=== PATIENT | female | born 1955 | race Caucasian/White ===

== ENCOUNTER 2016-11-14 12:56 | Inpatient (IN) | payer BC, OTHER ==
[2016-11-02 14:26] LABS: BASOPHILS 0.5 %; BASOPHILS ABSOLUTE 0.03 10/3/uL (0.0-0.16); EOSINOPHILS 0.8 %; EOSINOPHILS ABSOLUTE 0.05 10/3/uL (0.0-0.53); HEMATOCRIT 39.3 % (36.0-48.0); HEMOGLOBIN 13.1 g/dL (12.0-16.0); IMMATURE GRANULOCYTES 0.2 %; IMMATURE GRANULOCYTES ABSOLUTE 0.01 10/3/uL (0.0-0.11); LYMPHOCYTES ABSOLUTE 1.75 10/3/uL (0.67-4.30); MANUAL DIFF NO %; MEAN CORPUS HGB CONC 33.3 g/dL (32.0-36.0); MEAN CORPUSCULAR HEMOGLOB 28.2 pg (26.0-34.0); MEAN CORPUSCULAR VOLUME 84.7 fL (80-100); MEAN PLATELET VOLUME 10.1 fL (9.2-13.0); MONOCYTES 7.9 %; MONOCYTES ABSOLUTE 0.51 10/3/uL (0.21-1.20); NEUTROPHILS 63.6 %; NEUTROPHILS ABSOLUTE 4.14 10/3/uL (2.02-8.40); PLATELET COUNT 279 10/3/uL (150-400); RBC DISTRIBUTION WIDTH 12.7 % (12.0-16.0); RED CELL COUNT 4.64 10/6/uL (4.0-5.6); WHITE BLOOD CELLS 6.5 10/3/uL (4.5-10.5)
[2016-11-02 14:32] LABS: PARTIAL THROMBO TIME 29.2 SEC (22.5-37.2); PROTIME (NOT ORD) 12.8 SEC (12.0-14.5)
[2016-11-02 14:45] LABS: ALBUMIN 3.8 G/DL (3.5-5.0); ALKALINE PHOSPHATASE 115 U/L (45-117); BUN (BLOOD UREA NITROGEN) 12 MG/DL (6-23); CHLORIDE, SERUM 99 MMOL/L (96-112); CO2 (CARBON DIOXIDE) 28 MMOL/L (24-34); CREATININE 0.74 MG/DL (0.55-1.02); GFR AFRICAN AMERICAN 101 ML/MIN (>=60); GFR NON AFRICAN AMERICAN 87 ML/MIN (>=60); GLOBULIN 3.7 G/DL (2.5-4.1); GLUCOSE, SERUM 197 MG/DL (60-99); POTASSIUM, SERUM 4.1 MMOL/L (3.5-5.3); SGOT(AST) 17 U/L (5-40); SGPT(ALT) 27 U/L (5-65); SODIUM, SERUM 139 MMOL/L (135-148); TOTAL BILIRUBIN 0.6 MG/DL (0-1.2); TOTAL PROTEIN 7.5 G/DL (6.0-8.5)
[2016-11-02 15:52] LABS: ASCORBIC ACID (UR NOT ORDER) NEG (NEG); BILIRUBIN, URINE NEGATIVE (NEG); KETONE, URINE NEGATIVE (NEG); LEUKOCYTE ESTERASE(NOT OR SMALL (NEG); WBC (NOT ORDERED) (RFLEX) 4 (0-5)
--- NOTE | ~2016-11-14 | DS ---
Discharge Summary [facility] [address] [place]. [address] NAME: KALI HAMM : 53 STATUS : DIS IN PAT#: [id number] AGE: 61 ADM/REG DATE : 11/14/16 MR#: [id number] REPORT SERV DATE: 11/25/16 DICTATED BY: MOUSTAPHA CAM DATE: 11/24/16 REPORT STATUS : Draft TRANSCRIBED BY: CHRISTY DATE: 11/24/16 Data Collection from hospitalization DISCHARGE DIAGNOSES: 1. Left knee arthritis. 2. Hypertension. 3. Avl-thcolnr-gyedjbihc diabetes. 4. Gastroesophageal reflux disease. 5. Chronic bronchitis. 6. Peripheral neuropathy. 7. Depression. CONSULTATIONS: None. PROCEDURES PERFORMED: Left total knee arthroplasty, 11/14/2016. PATHOLOGY: Bone and tissue, left knee joint - degenerative osteoarthritis. Focal basophilic crystalline deposits consistent with pseudogout present. DISCHARGE MEDICATIONS: Elavil 25 mg at bedtime, Strattera 50 mg daily, Flexeril 10 mg as needed, Dexilant 60 mg daily, Neurontin 300 mg three times a day, Amaryl 2 mg daily, Moodus 10/325 one tablet every six hours as needed - do not take with Dilaudid, Dilaudid 2 mg every four hours as needed, Advil 200 mg every four hours as needed - do not take while on Coumadin, Glucophage 1000 mg with breakfast and supper, Januvia 50 mg daily, and Coumadin 5 mg daily. CONDITION AT DISCHARGE: Stable. DISPOSITION: The patient was discharged home on an 1800-calorie diabetic diet with activities as instructed. She would follow up with Aric Noland, 11/29/2016. She would follow up at [facility] [place], 11/20/2016, and at [facility] for lab work every Sunday or Sunday while on Coumadin. HOSPITAL COURSE: This is a 61-year-old female who had complained of left knee pain. She had pain in her knee for years and had gradually increased. She said about five years ago, she slipped on some ice and fell on her left knee. X-rays had shown left knee arthritis. Treatment options were discussed, and it was elected to proceed with surgical intervention. She was admitted to the hospital at this time for further evaluation and treatment. Upon admission, she was taken to the operating room, where she underwent the above-mentioned procedure. She tolerated this well. There were no complications. On postop day #1, she was evaluated by Physical Therapy. She had no edema. She had good pain control. On postop day #2, she did complain of pain in the left knee, oxycodone was not helping, and she was emotional. She had not received her Strattera. LYLA hose were in place. Neurontin and Elavil were continued as well as Protonix. She was placed on level 3 sliding scale insulin. Januvia and glimepiride were continued. Her Strattera was resumed. The next day, she was making slow progress. She continued to complain of pain. She does have a history of being a pain management patient. Discharge planning was performed. On 11/18/2016, she was doing Discharge Summary [address] [address] NAME: KALI HAMM : 53 STATUS : DIS IN PAT#: [id number] AGE: 61 ADM/REG DATE : 11/14/16 MR#: [id number] REPORT SERV DATE: 11/25/16 DICTATED BY: MOUSTAPHA CAM DATE: 11/24/16 REPORT STATUS : Draft TRANSCRIBED BY: CHRISTY DATE: 11/24/16 well. She was ambulating in the halls with Physical Therapy. She still complained of some left knee pain. Discharge instructions were given due to her improved and stable condition. She was discharged home with the above-stated instructions. Information collected by: Mary Perez I submit the above information as my discharge summary. WALTER/CHRISTY Moustapha Cam M.D. / [id number] CC: Brooklyn Alvarez M.D.
--- NOTE | ~2016-11-14 | OP ---
Record Of Operation [facility] [address] [place]. [address] NAME: KALI HAMM : 53 STATUS : ADM IN PAT#: [id number] AGE: 61 ADM/REG DATE : 11/14/16 MR#: [id number] REPORT SERV DATE: 11/14/16 DICTATED BY: MOUSTAPHA CAM DATE: 11/14/16 REPORT STATUS : Draft TRANSCRIBED BY: MODL DATE: 11/14/16 DATE OF PROCEDURE: 11/14/2016 PREOPERATIVE DIAGNOSIS: Left knee arthritis. POSTOPERATIVE DIAGNOSIS: Left knee arthritis. PROCEDURE PERFORMED: Left total knee arthroplasty. SURGEON: Moustapha Cam M.D. MEDICAL FIELD REPRESENTATIVE: Robert Carlos. ANESTHESIA: Spinal with adductor block and local infusion. PROCEDURE IN DETAIL: The patient is clearly identified and after obtaining informed consent is brought to the operating room at [facility] where anesthesia is induced uneventfully with excellent anesthetic effect. Subsequently, the affected extremity is prepped and draped in the usual manner and after an appropriate time-out procedure is performed, via an anterior approach, the skin is divided, fascial planes are elevated, paramedial approach to the knee is made. The structures themselves are elevated, excised, and debrided were appropriate, whereupon the patella is carefully everted, calipered, and planed and with the size and type being reproduced with the appropriate-size patella, trialing is performed successfully. At this point, the patella is then carefully subluxed laterally, the knee is flexed, osteophytes around the distal femur are removed, followed by the ACL being divided. The femoral canal is entered and vented, at which point with the intramedullary guide being utilized, the distal femoral cut is made. At this point, the tibia is carefully subluxed anteriorly. The surrounding soft tissues to the tibia are protected with Hohmann retractors, at which point the extramedullary guide is utilized to perform the proximal tibial cut and after cleansing these tissues, the spacer block is utilized in extension to confirm excellent extension, stability, and alignment. The guiding pins are then all carefully removed and the knee is then flexed. The femur is sized, whereupon the anterior, posterior, chamfer, and box cuts are made appropriately. The proximal tibia then is assessed. Osteophytes and surrounding soft tissues are removed and debrided were appropriate. Posterior osteophytes are removed as well. The menisci are excised and thus concluding trialings performed successfully. The proximal tibia then is carefully prepared utilizing proper cement technique. The permanent implants have been carefully placed into position uneventfully where upon copious irrigations performed, the permanent tibial implants applied and thus concluded. The joint was then copiously irrigated, at which point it is closed carefully in layers including Vicryl and max for the skin, at which point Aquacel sterile dressing is applied. The patient is allowed to awaken and is transferred to the bed and subsequently to the recovery room in stable condition having tolerated the procedure well. ESTIMATED BLOOD LOSS: 50. Record Of Operation [facility] [address] [place]. [address] NAME: KALI HAMM : 53 STATUS : ADM IN [facility]#: [id number] AGE: 61 ADM/REG DATE : 11/14/16 MR#: [id number] REPORT SERV DATE: 11/14/16 DICTATED BY: MOUSTAPHA CAM DATE: 11/14/16 REPORT STATUS : Draft TRANSCRIBED BY: CHRISTY DATE: 11/14/16 FLUIDS: 1000. TOURNIQUET TIME: 36 minutes. PATHOLOGY: Sent specimen. MICROBIOLOGY: None. COMPLICATIONS: None. SPONGE AND NEEDLE COUNTS: Reportedly correct. ANTIBIOTICS: Administered appropriately preoperatively and ordered to be discontinued within 23 hours. IMPLANTS: Attune knee by DePuy, femur 7, tibia 5, patella 38, polyethylene 03/23. MAEGAN/CHRISTY Muostapha Cam M.D. / [id number] CC: Moustapha Cam M.D.
[~2016-11-14 12:56] MED LIST: ADVIL PO; ALLEGRA180 PO; AMARYL2 PO; AMIT25 PO; CENTRUM TAB1 TAB PO; CIP5 PO; FLEX PO; GLUCCHONDR PO; GLUCOPHAGE1000 MG PO; JANUVIA50 PO; KAPIDEX60 MG PO; MOBIC15 MG PO; MSCONT15 PO; NEUR300 PO; NORCO1 TAB PO; STRATTERA100 MG PO; TRAZ50 PO; TYLENOL ARTH650 MG PO; VENTOLIN HFA INH; ZANTAC 150 PO; ZESTRIL5 MG PO; ZYRTEC ALLGY10 MG PO
[2016-11-15 05:21] LABS: HEMOGLOBIN 8.8 g/dL (12.0-16.0)
[2016-11-15 05:22] LABS: HEMATOCRIT 27.3 % (36.0-48.0)
[2016-11-15 05:27] LABS: INTERNATIONAL NORMAL RATI 1.1 UNITS (-); PROTIME (NOT ORD) 14.2 SEC (12.0-14.5)
[2016-11-15 05:32] LABS: BUN (BLOOD UREA NITROGEN) 12 MG/DL (6-23); CHLORIDE, SERUM 102 MMOL/L (96-112); CO2 (CARBON DIOXIDE) 29 MMOL/L (24-34); CREATININE 0.68 MG/DL (0.55-1.02); GFR AFRICAN AMERICAN 109 ML/MIN (>=60); GFR NON AFRICAN AMERICAN 94 ML/MIN (>=60); GLUCOSE, SERUM 235 MG/DL (60-99); SODIUM, SERUM 140 MMOL/L (135-148)
[2016-11-15 05:39] LABS: CALCIUM, SERUM 7.7 MG/DL (8.5-10.4)
[2016-11-16 06:10] LABS: HEMATOCRIT 29.5 % (36.0-48.0); HEMOGLOBIN 9.8 g/dL (12.0-16.0)
[2016-11-16 06:12] LABS: INTERNATIONAL NORMAL RATI 1.4 UNITS (-)
[2016-11-16 06:55] LABS: PROTIME (NOT ORD) 17.3 SEC (12.0-14.5)
[2016-11-17 05:14] LABS: INTERNATIONAL NORMAL RATI 1.5 UNITS (-); PROTIME (NOT ORD) 18.4 SEC (12.0-14.5)
[2016-11-17 05:36] LABS: HEMATOCRIT 28.8 % (36.0-48.0); HEMOGLOBIN 9.4 g/dL (12.0-16.0)
[2016-11-18 05:08] LABS: INTERNATIONAL NORMAL RATI 1.5 UNITS (-); PROTIME (NOT ORD) 18.1 SEC (12.0-14.5)
[2016-11-18] MEDS ORDERED: DIL2TAB PO (10:06)
[2016-11-18] MEDS ORDERED: C5 PO (10:06)
== END 2016-11-18 12:27 | disposition home or self-care (01) | DRG 470 ==
LOC: SDC/OF 12:56 → 3JRC 20:02
PROVIDERS: Orthopaedic Surgery
PROC: 3E0T3CZ (ICD-10-PCS; 2016-11-14)
PROC: 0SRD0J9 Replacement of Left Knee Joint with Synthetic Substitute, Cemented, Open Approach (ICD-10-PCS; principal; 2016-11-14 15:00)
DX: M17.12 Unilateral primary osteoarthritis, left knee (principal); E11.40 Type 2 diabetes mellitus with diabetic neuropathy, unspecified; E66.9 Obesity, unspecified; K21.9 Gastro-esophageal reflux disease without esophagitis; F90.9 Attention-deficit hyperactivity disorder, unspecified type; F32.9 Major depressive disorder, single episode, unspecified; Z68.37 Body mass index [BMI] 37.0-37.9, adult; E04.9 Nontoxic goiter, unspecified; G47.33 Obstructive sleep apnea (adult) (pediatric)
CPT/HCPCS: 36415; 71020; 80048; 80053; 81001; 82962; 85014; 85018; 85025; 85610; 85730; 86850; 86900; 86901; 87086; 87641; 88305; 88311; 93005; 97110-GP; 97116-GP; 97150-GP; 97161-GP; 97165-GO; A9270-GY; C1776; J0690; J1170; J1885; J2250; J2274; J2370; J2795; J3010; J3370; P9045